=== PATIENT | male | born 1995 | race Two or more races ===

== ENCOUNTER 2019-04-24 21:59 | Emergency (ER) | payer OTHER ==
[~2019-04-24] VITALS: Ht 167.6 cm; Wt 92.1 kg
--- NOTE | 2019-04-24 22:08 | NUR ---
ED Nurse Note: pt walked in to ED C/O lower back pain after carrying object that was 30lbs + earlier today. pt is alert x4.
[2019-04-24 22:09] VITALS: BP 128/78
--- NOTE | 2019-04-24 22:21 | Emergency Room Report ---
History of Present Illness General Chief Complaint: Lower Back Pain or Injury Source: Patient Present Illness HPI 24-year-old male, history of meniscus pain right knee, history of clavicle fracture presents with low back pain after lifting heavy boxes, patient endorses a sharp pain worse with movement alleviated with rest severity is severe, no fevers no chills no IV drug use, no perineal numbness, no urinary retention, no weakness Allergies: Coded Allergies: No Known Allergies (Unverified , 04/24/19) Patient History Past Medical History: see triage record Social History: Reports: smoking Reviewed Nursing Documentation: PMH: Agreed; PSxH: Agreed Nursing Documentation-PMH Past Medical History: No History, Except For Review of Systems All Other Systems: negative except mentioned in HPI Physical Exam Vital Signs Date Time Temp Pulse Resp B/P (MAP) Pulse Ox O2 Delivery O2 Flow Rate FiO2 04/24/19 22:00 98.1 97 18 126/80 (95) 97 Room Air Sp02 EP Interpretation: reviewed, normal General Appearance: well appearing, no apparent distress, alert Head: normocephalic, atraumatic Eyes: bilateral eye PERRL, bilateral eye EOMI ENT: uvula midline, moist mucus membranes Neck: supple, thyroid normal, supple/symm/no masses Respiratory: lungs clear, no respiratory distress, no retraction, no accessory muscle use Cardiovascular #1: normal peripheral pulses, regular rate, rhythm, no edema, no gallop, no murmur Gastrointestinal: non tender, soft, no guarding, no rebound Musculoskeletal: normal inspection, other - No midline tenderness, left paraspinal tenderness, right paraspinal tenderness, 5 out of 5 strength plantar dorsiflexion of the foot, 5 out of 5 strength flexion extension at the knee, ambulation intact Neurologic: alert, oriented x3 Psychiatric: mood/affect normal Skin: no rash, warm/dry Medical Decision Making Diagnostic Impression: Primary Impression: Low back pain Qualified Codes: M54.5 - Low back pain ER Course The patient presents with acute onset of back pain after lifting boxes at 250ok. Clinically this patient can be ruled out for serious pathology given there is a completely normal neurological exam, no history of IV drug use , and no history of bowel or bladder incontinence, no perianal numbness/tingling , no constipation or urinary retention. Once the patient's pain was adequately controlled, the patient was able to ambulate and be discharged in stable condition with anticipatory guidance provided. Last Vital Signs Date Time Temp Pulse Resp B/P (MAP) Pulse Ox O2 Delivery O2 Flow Rate FiO2 04/24/19 22:09 98.0 84 17 128/78 98 Room Air Disposition: HOME, SELF-CARE Condition: Stable Scripts Lidocaine Patch* (Lidoderm Patch*) 1 Each Adh..patch 1 PATCH TOPIC DAILY, #7 PATCH 0 Refills Patch(es) may remain in place for up to 12 hours in any 24-hour period. Prov: Otto Betancourt MD 04/24/19 Naproxen* (NAPROSYN*) 250 Mg Tablet 250 MG ORAL BID PRN for For Pain, #20 TAB 0 Refills Prov: Otto Betancourt MD 04/24/19 Referrals: [facility] Patient Instructions: Low Back Sprain With Rehab-SportsMed, Lumbosacral Strain Additional Instructions: The patient was provided with discharge instructions, notified to follow-up with a primary care doctor and or specialist in the next 24-48 hours, and to return to the ED if they have worsening of their symptoms. Please note that this report is being documented using Gl[employer] technology. This can lead to erroneous entry secondary to incorrect interpretation by the dictating instrument. Otto Betancourt MD Apr 24, 2019 22:21
[2019-04-24] MEDS ORDERED: LIDODERM700 M1 TOPIC (22:25)
[2019-04-24] MEDS ORDERED: NAPROXEN250 MG ORAL (22:25)
[2019-04-24 22:29] VITALS: BP 121/84
--- NOTE | 2019-04-24 22:29 | NUR ---
ER DISCHARGE NOTE: Patient is cleared to be discharged per ERMD, pt is aox4, on room air, with stable vital signs. pt was given dc and prescription instructions, pt was able to verbalize understanding, pt id band removed without complications. pt is able to ambulate with steady gait. pt took all belongings.
[2019-04-24] MEDS ORDERED: Acetaminophen 500mg (ES) tab ORAL ONE (22:30)
== END 2019-04-24 22:29 | disposition home or self-care (01) ==
LOC: EMR 22:10
DX: M54.5 Low back pain (principal)
CPT/HCPCS: 99283

== ENCOUNTER 2019-11-22 12:10 | Emergency (ER) | payer SELFPAY ==
[~2019-11-22] VITALS: Ht 175.3 cm; Wt 99.8 kg
[~2019-11-22 12:10] MED LIST: LIDODERM700 M1 TOPIC; NAPROXEN250 MG ORAL
[2019-11-22 12:47] VITALS: BP 129/87
--- NOTE | 2019-11-22 13:09 | Emergency Room Report ---
History of Present Illness General Chief Complaint: Wound Recheck/Suture Removal Source: Patient Present Illness HPI 24-year-old male with no signal past medical history here requesting a wound check laceration repair that was done about 10 days ago and reports that the sutures popped on their own however it appears to be dissolvable. No pus drainage noted. Patient requesting a work 1200, Pap obtained. Patient has full motion, no tingling numbness. Sitting comfortably with stable vital signs. Has been antibiotics. Allergies: Coded Allergies: No Known Allergies (Unverified , 04/24/19) COVID-19 Screening Contact w/high risk pt: No Recent Travel to affected area: No Experienced COVID-19 symptoms?: No COVID-19 Testing performed [employer]: No Patient History Past Medical History: see triage record Past Surgical History: none Pertinent Family History: none Immunizations: UTD Reviewed Nursing Documentation: PMH: Agreed; PSxH: Agreed Nursing Documentation-PMH Past Medical History: No Stated History Review of Systems All Other Systems: negative except mentioned in HPI Physical Exam Vital Signs Date Time Temp Pulse Resp B/P (MAP) Pulse Ox O2 Delivery O2 Flow Rate FiO2 11/22/19 12:31 98.4 66 14 129/87 (101) 98 Room Air Sp02 EP Interpretation: reviewed, normal General Appearance: well appearing, no apparent distress Head: normocephalic, atraumatic ENT: hearing grossly normal, normal voice Neck: full range of motion, supple Respiratory: no respiratory distress, speaking full sentences Cardiovascular #1: no edema Cardiovascular #2: 2+ radial (R), 2+ radial (L) Gastrointestinal: soft Rectal: deferred Genitourinary: no CVA tenderness Musculoskeletal: gait/station normal Neurologic: alert, normal gait Psychiatric: mood/affect normal Skin: other - Healed laceration right index finger Lymphatic: no adenopathy Medical Decision Making PA Attestation All diagnoses and treatment plans were reviewed and discussed with my supervising physician Dr. Hernadez Diagnostic Impression: Primary Impression: Encounter for wound re-check ER Course 24-year-old male with no signal past medical history here requesting a wound check laceration repair that was done about 10 days ago and reports that the sutures popped on their own however it appears to be dissolvable. No pus drainage noted. Patient requesting a work 1200, Pap obtained. Patient has full motion, no tingling numbness. Sitting comfortably with stable vital signs. Has been antibiotics. Ddx considered but are not limited to : Superficial laceration, deep laceration , tendon involvement with laceration, laceration with foreign body Vital signs: are WNL, pt. is afebrile H&PE are most consistent with: Wound recheck ORDERS: Mupirocin ointment ED INTERVENTIONS: Wound clean and dressed DISCHARGE: At this time pt. is stable for d/c to home. Will provide printed patient care instructions, and any necessary prescriptions. Care plan and follow up instructions have been discussed with the patient prior to discharge. Last Vital Signs Date Time Temp Pulse Resp B/P (MAP) Pulse Ox O2 Delivery O2 Flow Rate FiO2 11/22/19 12:47 98.4 14 129/87 98 Room Air 11/22/19 12:31 66 Disposition: HOME, SELF-CARE Condition: Stable Scripts Mupirocin* (MUPIROCIN*) 22 Gm Oint...g. 1 APPLIC TOPIC THREE TIMES A DAY, #22 GM Prov: Manish Givens 11/22/19 Patient Instructions: Wound Check Manish Givens Nov 22, 2019 13:09
[2019-11-22] MEDS ORDERED: MUPIROCIN22 GM TOPIC (13:10)
[2019-11-22 13:52] VITALS: BP 124/82
== END 2019-11-22 13:45 | disposition home or self-care (01) ==
LOC: EMR 13:05
DX: S61.210A Laceration without foreign body of right index finger without damage to nail, initial encounter (principal); X58.XXXA Exposure to other specified factors, initial encounter; Y92.9 Unspecified place or not applicable
CPT/HCPCS: 99281